=== PATIENT | male | born 1940 | race Caucasian/White ===

== ENCOUNTER 2020-06-30 17:05 | Inpatient (IN) | payer OTHER, MEDICAID ==
[~2020-06-30] VITALS: Ht 182.9 cm; Wt 78.0 kg
[2020-06-30 17:05] VITALS: BP_SYST 135
[2020-06-30] MEDS ORDERED: levETIRAcetam 1,000 MG in NS 90 ML IV ONE (17:15)
[2020-06-30 17:55] LABS: BASOPHILS % (AUTO) 0.9 % (0.0-2.0); EOSINOPHILS # (AUTO) 0.1 K/uL (0.0-0.4); EOSINOPHILS % (AUTO) 1.1 % (0.0-4.0); HEMATOCRIT 49.5 % (36-54); HEMOGLOBIN 16.6 g/dL (14.0-18.0); LYMPHOCYTES # (AUTO) 0.9 K/uL (1.0-5.5); LYMPHOCYTES % (AUTO) 16.3 % (20.5-51.5); MEAN CORPUSCULAR HEMOGLOBIN 31 pg (27-31); MEAN CORPUSCULAR HGB CONC 34 % (32-36); MEAN CORPUSCULAR VOLUME 93 fL (79.0-98.0); MONOCYTES # (AUTO) 0.4 K/uL (0.0-1.0); MONOCYTES % (AUTO) 7.5 % (1.7-9.3); NEUTROPHILS # (AUTO) 3.9 K/uL (1.8-7.7); NEUTROPHILS % (AUTO) 74.2 % (40.0-70.0); PLATELET COUNT (AUTO) 247 K/uL (130-430); RED BLOOD CELL COUNT(AUTO) 5.32 MIL/uL (4.2-6.2); RED CELL DISTRIBUTION WIDTH 14.3 % (9.0-15.0); WHITE BLOOD COUNT (AUTO) 5.3 K/uL (4.8-10.8)
[2020-06-30] MEDS ORDERED: NACL 0.9% 1,000 ML IV ONE (18:00)
[2020-06-30 18:06] LABS: INR 0.9 (0.80-1.20); PROTHROMBIN TIME 9.7 SECS (9.5-12.5)
[2020-06-30 18:10] LABS: CHLORIDE 110 mmol/L (98-107); POTASSIUM 4.3 mmol/L (3.5-5.1); SODIUM SERUM 147 mmol/L (136-145)
[2020-06-30 18:11] LABS: ANION GAP 12 (5-15); CALCIUM 8.8 mg/dL (8.4-11.0); CREATININE 1.44 mg/dL (0.55-1.30); GLUCOSE 131 mg/dL (70-99); UREA NITROGEN, BLOOD 21 mg/dL (8-21)
[2020-06-30 18:14] LABS: ALANINE AMINOTRANSFERASE 17 U/L (12-78); ALBUMIN 3.4 g/dL (3.4-4.8); ASPARTATE AMINOTRANSFERASE 28 U/L (10-37); TOTAL BILIRUBIN 0.4 mg/dL (0.0-1.0)
[2020-06-30 18:25] LABS: VALPROIC ACID 37 ug/mL (50-100)
[2020-06-30 18:28] LABS: BILIRUBIN,URINE NEGATIVE (NEGATIVE); BLOOD, URINE NEGATIVE (NEGATIVE); CLARITY/URINE CLEAR (CLEAR); COLOR,URINE YELLOW (YELLOW); GLUCOSE,URINE NEGATIVE (NEGATIVE); KETONES,URINE TRACE (NEGATIVE); LEUKOCYTE ESTERASE ,URINE NEGATIVE (NEGATIVE); NITRITE, URINE NEGATIVE (NEGATIVE); PH,URINE 5.5 (5.0-8.0); PROTEIN URINE NEGATIVE (NEGATIVE); UROBILINOGEN,URINE 0.2 (0.2-1.0)
[2020-06-30] MEDS ORDERED: ONDANSETRON HCL 4 MG/2 ML VIAL IVP PRN (20:45)
[2020-06-30] MEDS ORDERED: LORazepam 2 MG/ML VIAL IVP PRN (20:45)
[2020-06-30 21:20] VITALS: BP_SYST 127
[2020-06-30] MEDS ORDERED: LORazepam 2 MG/ML VIAL ONE (21:27)
[2020-06-30] MEDS: D5/0.45 NS 1,000 ML IV SCH (21:52)
[2020-07-01] VITALS: BP_SYST 119
[2020-07-01 00:58] VITALS: BP_SYST 127
[2020-07-01] MEDS ORDERED: levETIRAcetam 500 MG IV PREMIX 100 ML IV SCH (09:00)
[2020-07-01] MEDS: levETIRAcetam 500 MG IV PREMIX 100 ML IV SCH ×2 (09:02→20:33)
[2020-07-01 10:27] VITALS: BP_SYST 130
[2020-07-01] MEDS: D5/0.45 NS 1,000 ML IV SCH ×2 (11:03→16:08)
[2020-07-01 11:29] VITALS: BP_SYST 133
[2020-07-01 15:27] VITALS: BP_SYST 132
[2020-07-01 20:00] VITALS: BP_SYST 129
[2020-07-02 01:15] VITALS: BP_SYST 136
[2020-07-02] MEDS: D5/0.45 NS 1,000 ML IV SCH ×2 (04:50→21:04)
[2020-07-02 08:20] VITALS: BP_SYST 157
[2020-07-02] MEDS: levETIRAcetam 500 MG IV PREMIX 100 ML IV SCH ×2 (09:12→21:03)
[2020-07-02 12:19] VITALS: BP_SYST 158
[2020-07-02 15:22] VITALS: BP_SYST 145
[2020-07-02 20:00] VITALS: BP_SYST 153
[2020-07-03 00:45] VITALS: BP_SYST 154
[2020-07-03 08:10] VITALS: BP_SYST 149
[2020-07-03] MEDS: levETIRAcetam 500 MG IV PREMIX 100 ML IV SCH ×2 (08:34→21:42)
[2020-07-03 11:30] VITALS: BP_SYST 148
[2020-07-03 15:17] VITALS: BP_SYST 139
[2020-07-03 20:00] VITALS: BP_SYST 147
[2020-07-03] MEDS: D5/0.45 NS 1,000 ML IV SCH (21:48)
[2020-07-04 00:33] VITALS: BP_SYST 136
[2020-07-04 06:06] LABS: BASOPHILS % (AUTO) 0.4 % (0.0-2.0); EOSINOPHILS # (AUTO) 0.1 K/uL (0.0-0.4); EOSINOPHILS % (AUTO) 2.7 % (0.0-4.0); HEMOGLOBIN 15.5 g/dL (14.0-18.0); LYMPHOCYTES # (AUTO) 1.4 K/uL (1.0-5.5); LYMPHOCYTES % (AUTO) 27.2 % (20.5-51.5); MEAN CORPUSCULAR HEMOGLOBIN 31 pg (27-31); MEAN CORPUSCULAR HGB CONC 34 % (32-36); MEAN CORPUSCULAR VOLUME 92 fL (79.0-98.0); MONOCYTES # (AUTO) 0.8 K/uL (0.0-1.0); MONOCYTES % (AUTO) 15.8 % (1.7-9.3); NEUTROPHILS # (AUTO) 2.8 K/uL (1.8-7.7); NEUTROPHILS % (AUTO) 53.9 % (40.0-70.0); PLATELET COUNT (AUTO) 243 K/uL (130-430); RED BLOOD CELL COUNT(AUTO) 5.02 MIL/uL (4.2-6.2); RED CELL DISTRIBUTION WIDTH 13.8 % (9.0-15.0); WHITE BLOOD COUNT (AUTO) 5.1 K/uL (4.8-10.8)
[2020-07-04 06:27] LABS: ANION GAP 8 (5-15); CALCIUM 8.5 mg/dL (8.4-11.0); CHLORIDE 105 mmol/L (98-107); CREATININE 0.96 mg/dL (0.55-1.30); GLUCOSE 96 mg/dL (70-99); SODIUM SERUM 140 mmol/L (136-145); UREA NITROGEN, BLOOD 8 mg/dL (8-21)
[2020-07-04 07:50] VITALS: BP_SYST 141
[2020-07-04] MEDS: levETIRAcetam 500 MG IV PREMIX 100 ML IV SCH (08:34)
[2020-07-04] MEDS ORDERED: LEVE250T6 PO (11:54)
[2020-07-04 12:20] VITALS: BP_SYST 130
[2020-07-04 14:27] VITALS: BP_SYST 130
== END 2020-07-04 16:00 | DRG 100 ==
LOC: SED 17:05 → STU 20:37
PROVIDERS: ADMIT Family Medicine; ATTEND Family Medicine
PROC: 4A10X4Z Monitoring of Central Nervous Electrical Activity, External Approach (ICD-10-PCS; principal; 2020-07-01)
DX: G40.909 Epilepsy, unspecified, not intractable, without status epilepticus (principal); R40.2122 Coma scale, eyes open, to pain, at arrival to emergency department; R40.2212 Coma scale, best verbal response, none, at arrival to emergency department; R40.2342 Coma scale, best motor response, flexion withdrawal, at arrival to emergency department; N17.9 Acute kidney failure, unspecified; R13.10 Dysphagia, unspecified; G20 Parkinson's disease; M19.90 Unspecified osteoarthritis, unspecified site; F02.80 Dementia in other diseases classified elsewhere, unspecified severity, without behavioral disturbance, psychotic disturbance, mood disturbance, and anxiety; I10 Essential (primary) hypertension; Z20.822 Contact with and (suspected) exposure to COVID-19
CPT/HCPCS: 36415; 36600; 70450-TC; 71045; 76376; 80048; 80053; 80164; 81003; 82803-TC; 83605; 85025; 85610-TC; 87040-TC; 87081; 92610-GN; 93005; 95816; 96361; 96365; 99285; G0378; J1953; J2060

== ENCOUNTER 2022-04-23 03:51 | Inpatient (IN) | payer OTHER, MEDICAID ==
[~2022-04-23] VITALS: Ht 175.3 cm; Wt 64.9 kg
[2022-04-23] VITALS (8 sets, daily range): BP systolic 108–140
[~2022-04-23 03:51] MED LIST: LEVE250T6 PO
--- NOTE | 2022-04-23 03:58 | NUR ---
Placed in room 7 . Placed on threat monitoring analyst, blood pressure machine and pulse oximeter. To gown for exam. Side rails up. Report given to Karolyn LYNN.
[2022-04-23] MEDS ORDERED: cefTRIAXone 1 GM IVPB PREMIX 50 ML IV ONE (04:00)
[2022-04-23] MEDS ORDERED: LORazepam 2 MG/ML VIAL IVP ONE (04:00)
--- NOTE | 2022-04-23 04:00 | NUR ---
PT MARTAA FROM [facility] FOR SEIZURES, EMS REPOTS PT HAD SEVERAL SEIZURES AT FACILITY AND 1 IN [address]TE. PT ARRIVED A&O X0, NOT FOLLOWING COMMANDS, ON HIGH FLOW WITH O2 SAT AT 96%. BS 166 ON ARRIVAL. REQUESTED FOR MSE.
[2022-04-23] MEDS ORDERED: NACL 0.9% 1,000 ML IV ONE (04:15)
--- NOTE | 2022-04-23 04:19 | NUR ---
COVID AND MRSA SWABS COLLECTED AND SENT TO LAB.
[2022-04-23 04:36] LABS: BASOPHILS # (AUTO) 0.1 K/uL (0.0-0.2); BASOPHILS % (AUTO) 0.5 % (0.0-2.0); EOSINOPHILS # (AUTO) 0.1 K/uL (0.0-0.4); EOSINOPHILS % (AUTO) 0.9 % (0.0-4.0); HEMATOCRIT 44.2 % (36-54); HEMOGLOBIN 14.3 g/dL (14.0-18.0); LYMPHOCYTES # (AUTO) 2.5 K/uL (1.0-5.5); LYMPHOCYTES % (AUTO) 17.5 % (20.5-51.5); MEAN CORPUSCULAR HEMOGLOBIN 30 pg (27-31); MEAN CORPUSCULAR HGB CONC 32 % (32-36); MEAN CORPUSCULAR VOLUME 93 fL (79.0-98.0); MONOCYTES # (AUTO) 1.2 K/uL (0.0-1.0); MONOCYTES % (AUTO) 8.1 % (1.7-9.3); NEUTROPHILS # (AUTO) 10.5 K/uL (1.8-7.7); PLATELET COUNT (AUTO) 355 K/uL (130-430); RED BLOOD CELL COUNT(AUTO) 4.75 MIL/uL (4.2-6.2); RED CELL DISTRIBUTION WIDTH 16.2 % (9.0-15.0); WHITE BLOOD COUNT (AUTO) 14.3 K/uL (4.8-10.8)
--- NOTE | 2022-04-23 04:44 | NUR ---
PT TO CT VIA GURBRITT ACCOMPANIED BY TECH AND EMT.
--- NOTE | 2022-04-23 04:55 | NUR ---
PT BACK FROM CT VIA GURNEY ACCOMPANIED BY TECH AND EMT.
[2022-04-23 05:00] LABS: ANION GAP 16 (5-15); CALCIUM 9.5 mg/dL (8.4-11.0); CHLORIDE 109 mmol/L (98-107); CREATININE 1.67 mg/dL (0.55-1.30); GLUCOSE 183 mg/dL (70-99); UREA NITROGEN, BLOOD 26 mg/dL (8-21)
[2022-04-23 05:04] LABS: ALANINE AMINOTRANSFERASE 16 U/L (12-78); ALBUMIN 3.7 g/dL (3.4-4.8); ASPARTATE AMINOTRANSFERASE 15 U/L (10-37); PHENYTOIN (DILANTIN) 0.8 ug/mL (10.0-20.0); TOTAL BILIRUBIN 0.2 mg/dL (0.0-1.0)
--- NOTE | 2022-04-23 06:12 | NUR ---
PT PUT ON 4L NC, O2 SAT 95%, RR 22. MD MADE AWARE. SAFETY PRECAUTIONS IN PLACE AND CONNECTED TO MONITOR.
--- NOTE | 2022-04-23 06:15 | NUR ---
MD MADE AWARE OF LACTIC ACID OF 8.3. REQUESTED NS BOLUS, MD DOES NOT WANT TO MOVE FORWARD WITH MORE FLUIDS.
[2022-04-23 06:30] LABS: BILIRUBIN,URINE NEGATIVE (NEGATIVE); BLOOD, URINE 3+ (NEGATIVE); CLARITY/URINE CLOUDY (CLEAR); COLOR,URINE YELLOW (YELLOW); GLUCOSE,URINE NEGATIVE (NEGATIVE); KETONES,URINE NEGATIVE (NEGATIVE); LEUKOCYTE ESTERASE ,URINE 1+ (NEGATIVE); NITRITE, URINE POSITIVE (NEGATIVE); PROTEIN URINE 2+ (NEGATIVE); UROBILINOGEN,URINE 0.2 (0.2-1.0)
[2022-04-23 06:41] LABS: BACTERIA,URINE MANY /HPF (None Seen); WBC,URINE >100 /HPF (0-3)
[2022-04-23] MEDS ORDERED: FAMO20TA8 PO (07:04)
[2022-04-23] MEDS ORDERED: QUET50TA15 PO (07:04)
[2022-04-23] MEDS ORDERED: VITD2000 PO (07:04)
[2022-04-23] MEDS ORDERED: LEVE1000 PO (07:04)
[2022-04-23] MEDS ORDERED: ACETYLCYSTEINE 20% INH (07:04)
[2022-04-23] MEDS ORDERED: LIP20 PO (07:04)
[2022-04-23] MEDS ORDERED: XALEYE OP (07:04)
[2022-04-23] MEDS ORDERED: AMAN100C19 PO (07:04)
[2022-04-23] MEDS ORDERED: MULT-1117 PO (07:04)
[2022-04-23] MEDS ORDERED: CARB-317 PO (07:04)
[2022-04-23] MEDS ORDERED: LEVO25TA2 PO (07:04)
[2022-04-23] MEDS ORDERED: PHEN100C4 PO (07:04)
--- NOTE | 2022-04-23 07:15 | NUR ---
REPORT GIVEN TO CONCEPCION MILLER TO ASSUME CARE.
[2022-04-23] MEDS ORDERED: LORazepam 2 MG/ML VIAL IVP PRN (07:30)
--- NOTE | 2022-04-23 08:00 | NUR ---
Recieved report from LEAH Dudley. PT is nonverbal alert to voice and tactile stimulus. Skin is warm, intact , dry flaky and itchy (PT scratching extremities). On 4L oxygen via nasal canula saturation 97%. Breathing is even and unlabored, downey in place and draining well 50ml of urine return in bag, dry blood noted at meatus. IV on left hand; IV flushed and no infiltration noted. side rails up bed at lowest position. VSS
--- NOTE | 2022-04-23 08:08 | NUR ---
Note debbieone in EDM - 04/23/22 at 0810 by [id number] Admit bed requested Patient will be admitted to care of ]. Admitted to [] unit. Diagnosis [] Inpatient (Yes or No) [] Observation (Yes or No) [] Orientation concerns or request close to nursing station (Yes or No) [] Covid Status [] On vent or bipap [] Isolation requirements [] Needs a sitter [] From Home (Yes or if No enter name of facility) [] Requires Dialysis (Yes or No) [] Med Rec Completed (Yes of No) []
--- NOTE | 2022-04-23 08:34 | NUR ---
Admit bed requested Patient will be admitted to care of . Admitted to TELE unit. Diagnosis UROSEPSIS,UNCONTROLLED SEIZURES Inpatient (Yes or No) Y Observation (Yes or No) N Orientation concerns or request close to nursing station (Yes or No) Y Covid Status NEG On vent or bipap N Isolation requirements N Needs a sitter N From Home (Yes or if No enter name of facility) [facility] Requires Dialysis (Yes or No) N Med Rec Completed (Yes of No) Y
--- NOTE | 2022-04-23 09:56 | NUR ---
CONSULTATION PAGED REASON FOR CONSULTATION:UNCONTROLLED SEIZURES WAS CONSULT CALLED?Y PERSON WHO WAS NOTIFIED:TEXT MESSAGED BRANDON ARCHER CONSULTING PHYSICIAN:BRANDON ARCHER MARINE ELECTRONICS TECHNICIAN SPECIALTY:NEURO MARINE ELECTRONICS TECHNICIAN PHONE NUMBER:[phone] REQUESTING PHYSICIAN:KAMARI BEYER
[2022-04-23] MEDS: D5/0.45 NS 1,000 ML IV SCH ×2 (10:00→20:00)
--- NOTE | 2022-04-23 10:40 | NUR ---
Patient will be admitted to care of DR LUKE. Admitted to unit. Will go to room . Belongings list completed. Complete and up to date summary report printed. SBAR report to be given at bedside with opportunity for questions.
[2022-04-23] MEDS: CEFEPIME 1 GM in D5W 50 ML IV SCH (12:09)
--- NOTE | 2022-04-23 20:50 | NUR ---
ENDORSED CARE REPORT GIVEN TO LEAH LAY
[2022-04-23] MEDS: levETIRAcetam 500 MG TABLET PO SCH ×2 (21:00→22:26)
[2022-04-23] MEDS: PHENYTOIN 100 MG CAPSULE PO SCH ×2 (21:00→22:28)
[2022-04-23] MEDS: CARBIDOPA/LEVODOPA 25/100 MG TABLET PO SCH ×2 (21:00→22:28)
[2022-04-23] MEDS: ATORVASTATIN 20 MG TABLET PO SCH ×2 (21:00→22:28)
[2022-04-23] MEDS ORDERED: levETIRAcetam 500 MG TABLET PO SCH (21:00)
[2022-04-24 01:05] VITALS: BP_SYST 129
--- NOTE | 2022-04-24 03:19 | NUR ---
PAGE PAGED DOCTOR NOE FOR ORDERS
--- NOTE | 2022-04-24 03:55 | NUR ---
Patient Awake,alert,and oriented x1 to 2. Speech is garbled . Side rails padded for seizure precautions. Colon intact with concentrated lexus urine noted. O2 on at 2 liters per nasal cannula. Patient refused medications and IV being replaced. Dr oliver x2, waiting for a call back. Will continue to monitor.
[2022-04-24 04:08] VITALS: BP_SYST 141
[2022-04-24] MEDS: LEVOTHYROXINE SODIUM 0.025 MG TABLET PO SCH (06:12)
[2022-04-24 07:25] LABS: BASOPHILS % (AUTO) 0.7 % (0.0-2.0); EOSINOPHILS # (AUTO) 0.2 K/uL (0.0-0.4); EOSINOPHILS % (AUTO) 2.3 % (0.0-4.0); HEMATOCRIT 39.6 % (36-54); LYMPHOCYTES # (AUTO) 2.4 K/uL (1.0-5.5); LYMPHOCYTES % (AUTO) 35.5 % (20.5-51.5); MEAN CORPUSCULAR HEMOGLOBIN 31 pg (27-31); MEAN CORPUSCULAR HGB CONC 33 % (32-36); MEAN CORPUSCULAR VOLUME 93 fL (79.0-98.0); MONOCYTES % (AUTO) 14.2 % (1.7-9.3); NEUTROPHILS # (AUTO) 3.2 K/uL (1.8-7.7); NEUTROPHILS % (AUTO) 47.3 % (40.0-70.0); PLATELET COUNT (AUTO) 254 K/uL (130-430); RED BLOOD CELL COUNT(AUTO) 4.26 MIL/uL (4.2-6.2); RED CELL DISTRIBUTION WIDTH 16.1 % (9.0-15.0)
[2022-04-24 07:30] LABS: ALANINE AMINOTRANSFERASE 17 U/L (12-78); ALBUMIN 3.2 g/dL (3.4-4.8); ANION GAP 13 (5-15); ASPARTATE AMINOTRANSFERASE 17 U/L (10-37); CALCIUM 9.3 mg/dL (8.4-11.0); CHLORIDE 111 mmol/L (98-107); CREATININE 1.27 mg/dL (0.55-1.30); GLUCOSE 113 mg/dL (70-99); TOTAL BILIRUBIN 0.5 mg/dL (0.0-1.0); UREA NITROGEN, BLOOD 21 mg/dL (8-21)
[2022-04-24 07:40] LABS: WHITE BLOOD COUNT (AUTO) 6.7 K/uL (4.8-10.8)
[2022-04-24 08:00] VITALS: BP_SYST 139
--- NOTE | 2022-04-24 08:22 | NUR ---
OPENING NOTES: PT IN BED A/O X 2 . NO S/S OF DISTRESS OR PAIN REPORTED. BREATHING IS EVEN AND UNLABORED ON 3L NC. ALL NEEDS MET AT THIS TIME, SAFETY CHECKS MADE AND CALL LIGHT WITHIN REACH.
--- NOTE | 2022-04-24 08:25 | NUR ---
PAGED PAGED KAMARI BEYER AT [phone] SPOKE WITH HANS.
[2022-04-24] MEDS: D5/0.45 NS 1,000 ML IV SCH ×2 (08:30→23:29)
--- NOTE | 2022-04-24 08:32 | NUR ---
ROUNDS: PT IS REFUSING TO TAKE ALL MORNING MEDS. WILL NOTIFY DR. LUKE.
[2022-04-24] MEDS: levETIRAcetam 500 MG TABLET PO SCH ×2 (08:33→21:00)
[2022-04-24] MEDS: MULTIVITAMINS TAB 1 TABLET PO SCH (08:33)
[2022-04-24] MEDS: PHENYTOIN 100 MG CAPSULE PO SCH ×3 (08:33→21:00)
[2022-04-24] MEDS: CHOLECALCIFEROL (VITAMIN D3) 2,000 UNIT TABLET PO SCH (08:34)
[2022-04-24] MEDS: FAMOTIDINE 20 MG TABLET PO SCH (08:34)
[2022-04-24] MEDS: CARBIDOPA/LEVODOPA 25/100 MG TABLET PO SCH ×3 (08:34→21:00)
--- NOTE | 2022-04-24 09:13 | NUR ---
MD: DR LUKE RETURNED CALL. ORDERS FOR MIDLINE AND IM ATIVAN
--- NOTE | 2022-04-24 09:14 | NUR ---
HIGH ALERT NOTE: Called Dr. LUKE back identified within the medical roster to verify physician authenticity.
[2022-04-24] MEDS ORDERED: LORazepam 2 MG/ML VIAL IM ONE ×4 (09:15→23:00)
--- NOTE | 2022-04-24 10:10 | NUR ---
Received call from LEAH Parks regarding a procedure needed and information she was informed of by the [facility]. per , they are the conservator of the patient and they give consent for the patient's necessary procedure. I advised the nurse that I would call the facility to get appropriate paperwork that can be placed in the chart. Telephone call made to SHAMIKA Humphries at . per SHAMIKA, they are not the conservator of the patient, but the patient is managed by the IDT of the facility. She states for any procedures that are needed, they gather, meet, and determine the need for the procedure. I advised her of the patient's need for a mid line placement. The DON met with the IDT and indicated that they are approving for the placement of the mid line. I asked her to fax the IDT note with the necessary signatures, in which she stated she would. I advised the nurse of the information and indicated that once the fax is received, then i will bring it to her to place in the admission section of the chart. per nurse, upon receiving the IDT note, she will have me sign as the witness to the verbal consent for the procedure. Jerry Swann: [phone] SHAMIKA Humphries at [facility]: [phone]
--- NOTE | 2022-04-24 10:19 | NUR ---
SOFTWARE IMPLEMENTATION SPECIALIST: JEANNETTE WATTS CALLED PATIENT'S FACILITY [facility] TO CONFIRM CONSERVATORSHIP OVER PT CARE. SUZANNE OF [facility] APPROVED PLACEMENT OF THE MIDLINE WITH HER IDT TEAM. SHE WILL BE FAXING JEANNETTE WATTS WITH IDT FORM. ONCE FORM IS FAXED CONSENT FOR MIDLINE PLACEMENT WILL BE IN PT CHART.
[2022-04-24 11:25] VITALS: BP_SYST 123
[2022-04-24] MEDS: CEFEPIME 1 GM in D5W 50 ML IV SCH ×4 (12:00→23:28)
--- NOTE | 2022-04-24 14:13 | NUR ---
MD: DR LUKE CALLED BACK. ONCE PT HAS MIDLINE PLACEMENT THE PT WILL HAVE AN IV DVT PROPHYLACTIC.
--- NOTE | 2022-04-24 14:49 | NUR ---
NOTES: SPOKE WITH YEVGENIY THE PICC/MIDLINE NURSE. IT WANTED TO CONFIRM PT CONSENT. INFORMED HIM WE ARE WAITING FOR THE IDT TEAM AND DON AT [facility] TO FAX OVER CONSERVATORSHIP. THE IDT TEAM MAKES CARE DECISIONS FOR THIS PT. HE ASKED ME TO CALL HIM ONCE WE GET THE FAX.
--- NOTE | 2022-04-24 14:54 | NUR ---
MD: DR LUKE WAS BEDSIDE WITH THE PT
--- NOTE | 2022-04-24 15:34 | NUR ---
IDT note received from Jerry Swann. IDT note passed to RN Kasey to be placed in the patient's chart and begin procedure.
--- NOTE | 2022-04-24 15:55 | NUR ---
Received notification from LEAH Parks who advised that the IDT form sent needs to be resubmitted due to the IDT from Jerry Swann indicated a PICC line and not a MID line. I called Kristel back to inform her of the change needed, and she advised that her IDT members are not all present and it is now the end of the day. She asked if a form could be faxed over for them to sign and I advised her that I needed to call the nurse to ask. I called and spoke with the nurse and informed her of the conversation. Nurse states she will need to discuss with SHAMIKA.
[2022-04-24 16:40] VITALS: BP_SYST 119
--- NOTE | 2022-04-24 16:58 | NUR ---
NOTES: CONTACTED YEVGENIY PICC LINE NURSE AND INFORMED HIM WE HAVE CONSENT. CONSENT IN PT CHART
--- NOTE | 2022-04-24 17:10 | NUR ---
: DR LUKE APPROVED ORDER FOR IM ATIVAN ONE TIME.
--- NOTE | 2022-04-24 17:12 | NUR ---
HIGH ALERT NOTE: Called Dr. LUKE back identified within the medical roster to verify physician authenticity.
[2022-04-24 17:15] LABS: PROTHROMBIN TIME 10.6 SECS (9.5-12.5)
--- NOTE | 2022-04-24 19:00 | NUR ---
CLOSING NOTES: PT IN BED WITH EYES CLOSED. NO S/S OF DISTRESS OR PAIN REPORTED. BREATHING IS EVEN AND UNLABORED ON 3L NC. CACERES CATHETER IS DRAINING TO GRAVITY. ALL NEED MET AT THIS TIME, SAFETY CHECKS MADE AND CALL LIGHT WITHIN REACH.
--- NOTE | 2022-04-24 19:25 | NUR ---
OPENING NOTE PT IS SITTING UP IN BED WITH EYES OPEN. PT RESTLESS. NO APPARENT DISTRESS NOTED AT THIS TIME. FALL AND SAFETY PRECAUTIONS IN PLACE. CALL LIGHT WITHIN REACH. SEIZURE PRECAUTIONS IN PLACE.
--- NOTE | 2022-04-24 19:50 | NUR ---
PT CONFUSED/AGITATED PT OBSERVED SITTING AT EDGE OF BED AND PULLING AT CACERES CATH. NURSE ASSISTED PT BACK INTO BED AND REORIENTED PT ON CACERES CATH. PT STILL AGITATED.
[2022-04-24 20:00] VITALS: BP_SYST 123
--- NOTE | 2022-04-24 20:45 | NUR ---
SPOKE WITH DR LUKE RECEIVED ONE TIME ORDER FOR ATIVAN 1 MG IM FOR AGITATION NURSE READ BACK ORDER TO
[2022-04-24] MEDS: HEPARIN SODIUM,PORCINE 5,000 UNITS/ML VIAL SUBCUT SCH (21:00)
[2022-04-24] MEDS: ATORVASTATIN 20 MG TABLET PO SCH (21:00)
--- NOTE | 2022-04-24 22:00 | NUR ---
PICC LINE PLACED DOUBLE LUMEN RIGHT UPPER ARM PICC PLACED. PLACEMENT CONFIRMED BY X RAY.
--- NOTE | 2022-04-25 | NUR ---
ROUNDS PT LYING IN BED WITH EYES CLOSED. NO APPARENT DISTRESS NOTED AT THIS TIME. PT STILL AGITATED. BED IN LOWEST POSITION WITH FALL AND SAFETY PRECAUTIONS IN PLACE.
[2022-04-25 00:53] VITALS: BP_SYST 123
--- NOTE | 2022-04-25 02:13 | NUR ---
PT PULLED OUT PICC LINE NURSE WENT IN TO FIX PT TELE MONITOR AND DISCOVERED PT PULLED OUT HIS PICC LINE. PRESSURE HELD FOR 3 MINUTES. NO BLEEDING NOTED. IV FLUIDS STOPPED
--- NOTE | 2022-04-25 03:50 | NUR ---
PT OUT OF BED AND PULLED OUT CACERES CATH PT WAS OBSERVED TO BE OUT OF BED ATTEMPTING TO GET TO THE BATHROOM. PT ASSISTED BACK TO BED. NURSE NOTED THAT PT PULLED OUT THEIR CACERES CATH. MINIMAL BLOOD OBSERVED ON TIP OF PENIS. NO COMPLAINTS OF PAIN AT THIS TIME. PT BACK IN BED WITH FALL AND SAFETY PRECAUTIONS IN PLACE. SEIZURE PRECAUTIONS IN PLACE.
--- NOTE | 2022-04-25 04:05 | NUR ---
PT PULLED OFF PRODUCT STEWARD NURSE ATTEMPTED TO PLACE PRODUCT STEWARD BACK ON PT. PT BECAME AGITATED AND PUSHED NURSES AWAY WHILE YELLING. NURSE WAS ABLE TO EXPLAIN TO THE PATIENT THE IMPORTANCE OF THE MONITOR. PT CONSENTED TO NURSE TO PLACE MONITOR ANALI ON.
[2022-04-25] MEDS: LEVOTHYROXINE SODIUM 0.025 MG TABLET PO SCH ×2 (05:46→23:25)
--- NOTE | 2022-04-25 06:40 | NUR ---
BLOOD NOTED SMALL POOP OF BLOOD NOTED AROUND PENIS. PT AGITATED AND COMBATIVE WHEN NURSE ATTEMPTED TO CLEAN PT. OOZING BLOOD NOTED FROM TIP OF PENIS ONCE CLEANED.
--- NOTE | 2022-04-25 06:59 | NUR ---
CLOSING NOTE PT IS LYING UP IN BED WITH EYES CLOSED AND BLANKET OVER HEAD. NO APPARENT DISTRESS NOTED AT THIS TIME. FALL AND SAFETY PRECAUTIONS IN PLACE. CALL LIGHT WITHIN REACH. SEIZURE PRECAUTIONS IN PLACE.
--- NOTE | 2022-04-25 07:53 | NUR ---
OPENING NOTES: PT IN BED WITH EYES CLOSED. NO S/S OF DISTRESS OR PAIN REPORTED. PT REPEATEDLY TAKES OFF NC. BREATHING IS EVEN AND UNLABORED ON RA AT 98%. ALL NEEDS MET AT THIS TIME, SAFETY CHECKS MADE AND CALL LIGHT WITHIN REACH.
[2022-04-25 08:00] VITALS: BP_SYST 128
--- NOTE | 2022-04-25 08:52 | NUR ---
ROUNDS: PT JUMPED OUT OF BED AND URINATED ON THE FLOOR. HE PULLED HIS CACERES OUT LAST NIGHT. CLEANED PT UP AND REPLACED ALL LINENS. CALLED DR LUKE FOR NEW ORDERS.
[2022-04-25] MEDS: CARBIDOPA/LEVODOPA 25/100 MG TABLET PO SCH ×3 (09:00→21:00)
[2022-04-25] MEDS: CHOLECALCIFEROL (VITAMIN D3) 2,000 UNIT TABLET PO SCH (09:00)
[2022-04-25] MEDS: levETIRAcetam 500 MG TABLET PO SCH ×2 (09:00→21:00)
[2022-04-25] MEDS: HEPARIN SODIUM,PORCINE 5,000 UNITS/ML VIAL SUBCUT SCH ×2 (09:00→21:00)
[2022-04-25] MEDS: FAMOTIDINE 20 MG TABLET PO SCH (09:00)
[2022-04-25] MEDS: MULTIVITAMINS TAB 1 TABLET PO SCH (09:00)
[2022-04-25] MEDS: PHENYTOIN 100 MG CAPSULE PO SCH ×3 (09:00→21:00)
[2022-04-25] MEDS: D5/0.45 NS 1,000 ML IV SCH ×2 (09:30→22:00)
--- NOTE | 2022-04-25 09:32 | NUR ---
: CALLING DR LUKE
--- NOTE | 2022-04-25 10:12 | NUR ---
MD: UPDATED DR LUKE ON PT STATUS. INFORMED HIM THAT PT GOT OUT OF BED AND URINATED ON THE FLOOR. ORDER FOR RESTRAINTS, PHYSIC CONSULT AND IN REGARDS TO THE CACERES BEING PULLED OUT BY THE PT DR LUKE SAID TO OBSERVE HIM.
--- NOTE | 2022-04-25 11:38 | NUR ---
MD: DR LUKE AT BEDSIDE. ORDER FOR NEW PICC LINE INSERTION UPON CONSENT FOR PT FROM [facility]. WILL CALL [facility] AND UPDATE ABOUT NEW CONSENT.
--- NOTE | 2022-04-25 11:50 | NUR ---
CONSENT: CALLED [facility] FOR NEW CONSENT TO INSERT PICC LINE. SPOKE WITH CHARGE NURSE JORGE L BRYAN SHE IS CONTACTING THE OXYGEN TANK FILLER AND WILL CALL BACK.
[2022-04-25 12:00] VITALS: BP_SYST 125
[2022-04-25] MEDS: CEFEPIME 1 GM in D5W 50 ML IV SCH ×2 (12:00→23:25)
--- NOTE | 2022-04-25 15:12 | NUR ---
Dietitian Recommendations * Continue Pureed diet (Ensure TID comes standard w/ current diet -- ONS yields 1050 kcal/day, 60 gm protein/day) * Encourage good PO intakes LP, MS, RD Please refer to Nutrition Assessment for details. Addendum: 04/25/22 at [address] Amended: Links added. Addendum: 04/25/22 at [address] CORRECTION: Dietitian Recommendations * Continue Pureed, CCHO standard carb-60 gm diet (Glucerna TID comes standard w/ current diet -- ONS yields 840 kcal/day, 35 gm protein/day) * Encourage good PO intakes LP, MS, RD Please refer to Nutrition Assessment for details.
--- NOTE | 2022-04-25 16:44 | NUR ---
NOTES: RECEIVED CONSENT FROM [facility] FOR PT TO HAVE PICC LINE INSERTION. PT PULLED OUT PICC LINE FROM 04/24/22. DR LUKE APPROVED ORDER FOR ANOTHER PICC LINE.
[2022-04-25 16:47] VITALS: BP_SYST 127
--- NOTE | 2022-04-25 18:12 | NUR ---
CLOSING NOTES: PT IS IN BED WITH EYES CLOSED. RESTRAINTS ARE SECURED AND Q2 HOUR ROUNDS MADE ON PT. NO S/S OF DISTRESS OR PAIN REPORTED. BREATHING IS EVEN AND UNLABORED 98% RA. PT REMOVED HIS 3L NC, IT WAS REPLACED. ALL NEEDS MET AT THIS TIME, SAFETY CHECKS MADE AND CALL LIGHT WITHIN REACH. WILL ENDORSE TO NIGHT NURSE.
[2022-04-25 19:30] VITALS: BP_SYST 136
--- NOTE | 2022-04-25 19:30 | NUR ---
Opening Note PT lying in his bed on his right side. No S/S of acute distress or pain. Breathing even and nonlabored. Restrains are secured and Monitored Q2 hours made. VSS. Bed alarm on and lowest position. call light within reach.
[2022-04-25] MEDS ORDERED: LORazepam 2 MG/ML VIAL ONE (20:15)
[2022-04-25] MEDS: ATORVASTATIN 20 MG TABLET PO SCH (21:00)
[2022-04-25] MEDS: SULFAMETHOXAZOLE/TRIMETHOPR DS 1 TABLET PO SCH (21:00)
--- NOTE | 2022-04-25 23:00 | NUR ---
Rounding Note PT lying his bed and eyes are closed. No S/S of acute distress or pain. bed alarm on. call light in reach. Retrains on, circulation WNL. Continue to monitor.
[2022-04-25 23:36] VITALS: BP_SYST 136
[2022-04-26 00:49] VITALS: BP_SYST 137
--- NOTE | 2022-04-26 02:15 | NUR ---
Rounding Note PT lying his bed and talking to himself. Reoriented PT. No S/S of acute distress or pain. Bed alarm on. Call light in reach. Retrains on with quick-release ties to bed frame and circulation WNL. Will monitor Q2hr.
[2022-04-26] MEDS: LORazepam 2 MG/ML VIAL IM PRN ×2 (03:31→12:07)
--- NOTE | 2022-04-26 05:15 | NUR ---
Rounding Note PT wetted on sheet with urine. provided perineal care and changed to new gown, bed cover and sheet. Skin intact and dry. No S/S of acute distress or pain. Bed alarm on. Call light in reach. Retrains on with quick-release ties to bed frame and circulation WNL. Will monitor Q2hr.
--- NOTE | 2022-04-26 05:22 | NUR ---
TELE PHYSC CONSULTATION PAGED/CALLED Reason for Consultation: INCREASED CONFUSION Person Who was Notified: REJI Consulting Physician: JORDAN RICHMOND Blow Mold Technician Specialty: Ordering Physician: NOE
--- NOTE | 2022-04-26 07:05 | NUR ---
CLOSING NOTE PT LYING IN BED. AWAKE. NO S/S OF DISTRESS OR PAIN. BREATHING EVEN AND NONLABORED. BED ALARM AND RESTRAINTS ON. SKIN INTACT.
[2022-04-26 08:00] VITALS: BP_SYST 142
--- NOTE | 2022-04-26 08:15 | NUR ---
OPENING NOTES: PT IN BED WITH EYES CLOSED. REPOSITIONED PT TO [facility] SO HE COULD EAT BREAKFAST. LET HIM OFF RESTRAINTS WITH RETAIL MERCHANDISING MANAGER AT BEDSIDE SO PT COULD FEED HIMSELF. NO INJURY OR LACK OF CIRCULATION NOTED BY RESTRAINTS. RESTRAINTS REAPPLIED AFTER BREAKFAST. NO S/S OF DISTRESS OR PAIN REPORTED. BREATHING IS EVEN AND UNLABORED ON 3L NC. ALL NEEDS MET AT THIS TIME, SAFETY CHECKS MADE AND CALL LIGHT WITHIN REACH.
[2022-04-26] MEDS: MULTIVITAMINS TAB 1 TABLET PO SCH (09:00)
[2022-04-26] MEDS: CHOLECALCIFEROL (VITAMIN D3) 2,000 UNIT TABLET PO SCH (09:00)
[2022-04-26] MEDS: PHENYTOIN 100 MG CAPSULE PO SCH ×3 (09:00→21:00)
[2022-04-26] MEDS: CARBIDOPA/LEVODOPA 25/100 MG TABLET PO SCH ×3 (09:00→21:00)
[2022-04-26] MEDS: levETIRAcetam 500 MG TABLET PO SCH ×2 (09:00→21:00)
[2022-04-26] MEDS: FAMOTIDINE 20 MG TABLET PO SCH (09:00)
[2022-04-26] MEDS: HEPARIN SODIUM,PORCINE 5,000 UNITS/ML VIAL SUBCUT SCH ×2 (09:00→21:00)
[2022-04-26] MEDS: SULFAMETHOXAZOLE/TRIMETHOPR DS 1 TABLET PO SCH ×2 (09:00→21:00)
--- NOTE | 2022-04-26 09:00 | NUR ---
ROUNDS: PT REFUSING MEDICATIONS. PICC LINE LEAH VUONG CALLED AND IS COMING TO INSERT PICC LINE.
[2022-04-26 09:36] LABS: BASOPHILS % (AUTO) 0.9 % (0.0-2.0); EOSINOPHILS # (AUTO) 0.2 K/uL (0.0-0.4); EOSINOPHILS % (AUTO) 4.3 % (0.0-4.0); HEMATOCRIT 39.7 % (36-54); HEMOGLOBIN 13.3 g/dL (14.0-18.0); LYMPHOCYTES # (AUTO) 1.5 K/uL (1.0-5.5); LYMPHOCYTES % (AUTO) 31.6 % (20.5-51.5); MEAN CORPUSCULAR HEMOGLOBIN 30 pg (27-31); MEAN CORPUSCULAR HGB CONC 34 % (32-36); MEAN CORPUSCULAR VOLUME 91 fL (79.0-98.0); MONOCYTES # (AUTO) 0.5 K/uL (0.0-1.0); MONOCYTES % (AUTO) 10.3 % (1.7-9.3); NEUTROPHILS # (AUTO) 2.5 K/uL (1.8-7.7); NEUTROPHILS % (AUTO) 52.9 % (40.0-70.0); PLATELET COUNT (AUTO) 269 K/uL (130-430); RED BLOOD CELL COUNT(AUTO) 4.38 MIL/uL (4.2-6.2); RED CELL DISTRIBUTION WIDTH 15.5 % (9.0-15.0); WHITE BLOOD COUNT (AUTO) 4.8 K/uL (4.8-10.8)
[2022-04-26] MEDS: D5/0.45 NS 1,000 ML IV SCH ×2 (10:30→23:42)
[2022-04-26 10:34] LABS: ALANINE AMINOTRANSFERASE 20 U/L (12-78); ALBUMIN 3.2 g/dL (3.4-4.8); ANION GAP 9 (5-15); ASPARTATE AMINOTRANSFERASE 24 U/L (10-37); CHLORIDE 104 mmol/L (98-107); CREATININE 0.99 mg/dL (0.55-1.30); GLUCOSE 102 mg/dL (70-99); TOTAL BILIRUBIN 0.5 mg/dL (0.0-1.0); UREA NITROGEN, BLOOD 15 mg/dL (8-21)
[2022-04-26 11:54] VITALS: BP_SYST 110
[2022-04-26] MEDS: CEFEPIME 1 GM in D5W 50 ML IV SCH ×2 (12:00→23:04)
[2022-04-26] MEDS ORDERED: POTASSIUM CHLORIDE 20 MEQ in NS 250 ML IV ONE (17:00)
[2022-04-26 17:08] VITALS: BP_SYST 131
--- NOTE | 2022-04-26 18:19 | NUR ---
CLOSING NOTES: PT IN BED EATING DINNER. REMOVED RESTRAINTS SO PT COULD FEED HIMSELF WHILE I OBSERVED THE ENTIRE TIME. WILL REAPPLY RESTRAINTS WHEN HE IS FINISHED. NO S/S OF DISTRESS OR PAIN REPORTED. BREATHING IS EVEN AND UNLABORED ON 2L NC. PICC LINE IS PATENT AND KRIDER IS FLOWING. ALL NEEDS MET AT THIS TIME, SAFETY CHECKS MADE AND CALL LIGHT WITH IN REACH. WILL ENDORSE TO GOLF COURSE KEEPER NURSE.
--- NOTE | 2022-04-26 19:10 | NUR ---
OPENING NOTE PT IS LYING IN BED WITH EYES CLOSED LETHARGIC. NO APPARENT SIGNS OF DISTRESS NOTED AT THIS TIME. BED IN LOWEST POSITION WITH FALL AND SAFETY PRECAUTIONS IN PLACE. BILAT WRIST RESTRAINT IN PLACE, SKIN & CIRCULATION WNL. IV FLUID RUNNING ORDERED.
[2022-04-26 20:00] VITALS: BP_SYST 122
[2022-04-26] MEDS: ATORVASTATIN 20 MG TABLET PO SCH (21:00)
[2022-04-26] MEDS ORDERED: QUEtiapine FUMARATE 25 MG TABLET PO PRN (21:15)
--- NOTE | 2022-04-26 23:20 | NUR ---
ROUNDS PT IS LYING IN BED WITH EYES CLOSED. NO APPARENT SIGNS OF DISTRESS NOTED. BILAT WRIST RESTRAINTS ON, SKIN & CIRCULATION WNL. IV FLUIDS RUNNING ORDERED.
[2022-04-27 00:35] VITALS: BP_SYST 127
--- NOTE | 2022-04-27 04:21 | NUR ---
ROUNDS BED BATH PROVIDED, CLEAN SHEETS. NO APPARENT SIGNS OF DISTRESS NOTED. WHEN NURSE ATTEMPTED TO PLACE PT BACK ONTO RESTRAINTS PT BECAME COMBATIVE AND ATTEMPTED TO HIT THE NURSE. NURSE WAS ABLE TO TALK TO AND CALM PT DOWN. PT LET NURSE PLACE HIM BACK ON RESTRAINTS. SKIN & CIRCULATION WNL. IV FLUIDS RUNNING ORDERED.
[2022-04-27] MEDS: LEVOTHYROXINE SODIUM 0.025 MG TABLET PO SCH (06:30)
--- NOTE | 2022-04-27 07:03 | NUR ---
OPENING NOTE PT IS LYING IN BED WITH EYES CLOSED. NO APPARENT SIGNS OF DISTRESS NOTED AT THIS TIME. BED IN LOWEST POSITION WITH FALL AND SAFETY PRECAUTIONS IN PLACE. BILAT WRIST RESTRAINT IN PLACE, SKIN & CIRCULATION WNL. IV FLUID RUNNING ORDERED. CALL LIGHT WITHIN REACH. Addendum: 04/27/22 at 0704 by Otis Blake LVN CLOSING NOTE
--- NOTE | 2022-04-27 07:35 | NUR ---
MORNING ROUNDS: PATIENT LYING ON THE BED,AWAKE,ALERT AND ORIENTED X2-3.WITH BILATERAL SOFT WRIST RESTRAINT ON. BED LOCKED AT LOWEST POSITION. IV FLUIDS RUNNING AT RIGHT UPPER ARM PICC LINE INTACT. O2 2L/NC,GOOD SATURATION. SAFETY MEASURES RENDERED. NO DISTRESS.
[2022-04-27 08:00] VITALS: BP_SYST 133
[2022-04-27] MEDS: HEPARIN SODIUM,PORCINE 5,000 UNITS/ML VIAL SUBCUT SCH ×2 (08:59→20:47)
[2022-04-27] MEDS: FAMOTIDINE 20 MG TABLET PO SCH (09:00)
[2022-04-27] MEDS: PHENYTOIN 100 MG CAPSULE PO SCH (09:00)
[2022-04-27] MEDS: MULTIVITAMINS TAB 1 TABLET PO SCH (09:00)
[2022-04-27] MEDS: levETIRAcetam 500 MG TABLET PO SCH (09:00)
[2022-04-27] MEDS: SULFAMETHOXAZOLE/TRIMETHOPR DS 1 TABLET PO SCH ×2 (09:00→20:55)
[2022-04-27] MEDS: CARBIDOPA/LEVODOPA 25/100 MG TABLET PO SCH ×3 (09:00→20:45)
[2022-04-27] MEDS: CHOLECALCIFEROL (VITAMIN D3) 2,000 UNIT TABLET PO SCH (09:00)
--- NOTE | 2022-04-27 09:00 | NUR ---
MED PASS: PATIENT HAD A CHANGED OF BEHAVIOR.NON VERBAL,BOTH HANDS CLENCHED WHEN ATTEMPTING TO ADMINISTER HEPARIN SC.PATIENT REFUSED ORAL MEDICATIONS.BILATERAL SOFT WRIST RESTRAINT ON. NO DISTRESS.
[2022-04-27] MEDS: CEFEPIME 1 GM in D5W 50 ML IV SCH ×2 (12:09→23:40)
[2022-04-27] MEDS: D5/0.45 NS 1,000 ML IV SCH (12:14)
[2022-04-27] MEDS ORDERED: PHENYTOIN SODIUM 100 MG/2 ML VIAL (DILANTIN) IV SCH (12:45)
[2022-04-27] MEDS ORDERED: PHENYTOIN SODIUM 100 MG/2 ML VIAL (DILANTIN) IV ONE (13:00)
[2022-04-27 13:17] VITALS: BP_SYST 131
[2022-04-27] MEDS ORDERED: PHENYTOIN SODIUM IV ONE (16:00)
[2022-04-27] MEDS ORDERED: NS IV ONE (16:00)
--- NOTE | 2022-04-27 18:30 | NUR ---
EVENING ROUNDS: PATIENT RESTING. O2 2L/NC,GOOD SATURATION.STILL ON BILATERAL SOFT WRIST RESTRAINT ON. IV AT RIGHT UPPER ARM PICC LINE INTACT. BED LOCKED AT LOWEST POSITION. NOT IN ANY DISTRESS.
[2022-04-27 18:41] VITALS: BP_SYST 126
[2022-04-27 20:00] VITALS: BP_SYST 142
--- NOTE | 2022-04-27 20:25 | NUR ---
Opening note- pt awake, alert but confused. No s/sx of Seizure. IVF via Rt upper arm PICC. Incontinent of urine. given jyoti car. skin intact.
[2022-04-27] MEDS: levETIRAcetam 1,500 MG in NS 85 ML IV SCH (20:43)
[2022-04-27] MEDS: ATORVASTATIN 20 MG TABLET PO SCH (20:44)
[2022-04-27 23:43] VITALS: BP_SYST 125
[2022-04-28] MEDS: LEVOTHYROXINE SODIUM 0.025 MG TABLET PO SCH (06:06)
[2022-04-28] MEDS: D5/0.45 NS 1,000 ML IV SCH ×3 (06:07→23:34)
--- NOTE | 2022-04-28 06:27 | NUR ---
Closing note- pt slept over night. Pt refused am medication and not cooperative with care. Refused Seroquile 12.5 mg.
[2022-04-28] MEDS: LORazepam 2 MG/ML VIAL IM PRN (06:34)
--- NOTE | 2022-04-28 06:37 | NUR ---
GIVEN ATIVAN 0.5 MG IVP FOR AGITATION.
--- NOTE | 2022-04-28 07:30 | NUR ---
MORNING ROUNDS: PATIENT SLEEPING DURING ROUNDS.EASILY AROUSED.ON BILATERAL SOFT WRIST RESTRAINT.RIGHT UPPER ARM PICC LINE INTACT,IV FLUIDS RUNNING WELL. BED LOCKED AT LOWEST POSITION. CONTINUE TO MONITOR.
[2022-04-28 08:09] VITALS: BP_SYST 125
[2022-04-28] MEDS: MULTIVITAMINS TAB 1 TABLET PO SCH (08:38)
[2022-04-28] MEDS: SULFAMETHOXAZOLE/TRIMETHOPR DS 1 TABLET PO SCH (08:39)
[2022-04-28] MEDS: CHOLECALCIFEROL (VITAMIN D3) 2,000 UNIT TABLET PO SCH (08:39)
[2022-04-28] MEDS: FAMOTIDINE 20 MG TABLET PO SCH (08:39)
[2022-04-28] MEDS: CARBIDOPA/LEVODOPA 25/100 MG TABLET PO SCH ×3 (08:40→21:00)
[2022-04-28] MEDS: HEPARIN SODIUM,PORCINE 5,000 UNITS/ML VIAL SUBCUT SCH ×2 (08:41→21:00)
[2022-04-28] MEDS: levETIRAcetam 1,500 MG in NS 85 ML IV SCH ×2 (08:46→21:59)
--- NOTE | 2022-04-28 09:00 | NUR ---
MED PASS: TOOK SOME OF CRUSHED MEDS WITH APPLE SAUCE. AFTER PATIENT REFUSED,AND CLENCHING BOTH HANDS.
[2022-04-28] MEDS: CEFEPIME 1 GM in D5W 50 ML IV SCH ×2 (11:41→23:33)
[2022-04-28 11:44] VITALS: BP_SYST 119
--- NOTE | 2022-04-28 14:20 | NUR ---
RN ROUNDS: RESTING. NO DISTRESS.
[2022-04-28] MEDS: PHENYTOIN SODIUM IV SCH (16:30)
[2022-04-28] MEDS: NS IV SCH (16:30)
--- NOTE | 2022-04-28 18:30 | NUR ---
EVENING ROUNDS: RESTING.RIGHT UPPER ARM PICC LINE INTACT ,IV FLUIDS RUNNING. BILATERAL SOFT WRIST RESTRAINT ON. ROOM AIR,WITH GOOD SATURATION. BED LOCKED AT LOWEST POSITION. CONTINUE TO MONITOR.
[2022-04-28 19:05] VITALS: BP_SYST 121
--- NOTE | 2022-04-28 19:30 | NUR ---
OPENING NOTE PT LYING BED. EYES CLOSED. CONFUSED AND UNCOOPERATIVE. RESTRAINTS WERE NOT ON HIS WRISTS. PUT THEM BACK ON. Q2HR ROUND MADE. VSS. PICC LINE IS SECURED AND PATENT. BED ALARM ON. SAFETY CHECKS IN PLACED. CONTINUE TO MONITOR.
[2022-04-28 20:00] VITALS: BP_SYST 113
[2022-04-28] MEDS: ATORVASTATIN 20 MG TABLET PO SCH (21:00)
[2022-04-28 23:00] VITALS: BP_SYST 113
--- NOTE | 2022-04-28 23:00 | NUR ---
ROUNDING NOTE PT LYING IN BED AND EYES CLOSED. NO S/S OF DISTRESS OR PAIN. BREATHING EVEN AND NONLABORED. RESTRAINTS ARE SECURED AND NO CIRCULATORY PROBLEMS DETECTED. BED ALARM ON AND SAFETY CHECKS IN PLACED. CALL LIGHT IN REACH. CONTINUE TO MONITOR.
[2022-04-29 01:20] VITALS: BP_SYST 104
[2022-04-29] MEDS: LEVOTHYROXINE SODIUM 0.025 MG TABLET PO SCH (06:42)
--- NOTE | 2022-04-29 06:51 | NUR ---
CLOSING NOTE PT LYING IN BED, EYES CLOSED. BREATHING EVEN AND NONLABORED WITH RA. RESTRAINTS ARE SECURED AND SKIN INTACT. SYNTHROID GIVEN WITH CRUSHED AND MIXED WITH APPLESAUCE. NO S/S ACUTE DISTRESS OR PAIN. SAFETY CHECKS IN PLACE. CALL LIGHT IN REACH.
[2022-04-29 08:00] VITALS: BP_SYST 119
--- NOTE | 2022-04-29 08:17 | NUR ---
OPENING NOTES: PT IN BED WITH EYES CLOSED. NO S/S OF DISTRESS OR PAIN REPORTED. BREATHING IS EVEN AND UNLABORED ON RA. IV FLUIDS RUNNING. ALL NEEDS MET AT THIS TIME, SAFETY CHECKS MADE AND CALL LIGHT WITHIN REACH.
[2022-04-29] MEDS: FAMOTIDINE 20 MG TABLET PO SCH (09:00)
[2022-04-29] MEDS: CARBIDOPA/LEVODOPA 25/100 MG TABLET PO SCH ×3 (09:00→20:59)
[2022-04-29] MEDS: CHOLECALCIFEROL (VITAMIN D3) 2,000 UNIT TABLET PO SCH (09:00)
[2022-04-29] MEDS: MULTIVITAMINS TAB 1 TABLET PO SCH (09:00)
[2022-04-29 10:04] LABS: ALANINE AMINOTRANSFERASE 17 U/L (12-78); ALBUMIN 3.2 g/dL (3.4-4.8); ANION GAP 13 (5-15); ASPARTATE AMINOTRANSFERASE 14 U/L (10-37); CALCIUM 9.1 mg/dL (8.4-11.0); CHLORIDE 105 mmol/L (98-107); CREATININE 1.13 mg/dL (0.55-1.30); GLUCOSE 110 mg/dL (70-99); TOTAL BILIRUBIN 0.2 mg/dL (0.0-1.0); UREA NITROGEN, BLOOD 13 mg/dL (8-21)
--- NOTE | 2022-04-29 10:25 | NUR ---
ROUNDS: PT IS REFUSING ORAL MEDICATIONS. EDUCATED HIM ON IMPORTANCE OF TAKING MEDICATIONS AND HE SAID "HE'S BETTER OFF WITHOUT THEM". WAITING FOR [facility] LAB TO COME THROUGH BEFORE ADMINISTERING HIS HEPARIN SUBQ.
[2022-04-29] MEDS: levETIRAcetam 1,500 MG in NS 85 ML IV SCH ×2 (10:38→21:28)
[2022-04-29 12:00] VITALS: BP_SYST 110
--- NOTE | 2022-04-29 12:00 | NUR ---
ROUNDS: PT IN BED WITH EYES CLOSED. NO S/S OF DISTRESS OR PAIN REPORTED. BREATHING IS EVEN AND UNLABORED ON RA. ALL NEEDS MET AT THIS TIME ,SAFETY AND RESTRAINT CHECKS MADE, CALL LIGHT WITHIN REACH.
[2022-04-29] MEDS: CEFEPIME 1 GM in D5W 50 ML IV SCH (12:31)
[2022-04-29 12:44] LABS: BASOPHILS # (AUTO) 0.1 K/uL (0.0-0.2); BASOPHILS % (AUTO) 1.8 % (0.0-2.0); EOSINOPHILS # (AUTO) 0.2 K/uL (0.0-0.4); EOSINOPHILS % (AUTO) 4.9 % (0.0-4.0); HEMATOCRIT 37.5 % (36-54); HEMOGLOBIN 12.4 g/dL (14.0-18.0); LYMPHOCYTES # (AUTO) 1.5 K/uL (1.0-5.5); MEAN CORPUSCULAR HEMOGLOBIN 30 pg (27-31); MEAN CORPUSCULAR HGB CONC 33 % (32-36); MEAN CORPUSCULAR VOLUME 91 fL (79.0-98.0); MONOCYTES # (AUTO) 0.5 K/uL (0.0-1.0); MONOCYTES % (AUTO) 13.8 % (1.7-9.3); NEUTROPHILS # (AUTO) 1.6 K/uL (1.8-7.7); NEUTROPHILS % (AUTO) 41.5 % (40.0-70.0); PLATELET COUNT (AUTO) 218 K/uL (130-430); RED CELL DISTRIBUTION WIDTH 15.6 % (9.0-15.0); WHITE BLOOD COUNT (AUTO) 3.9 K/uL (4.8-10.8)
[2022-04-29] MEDS: D5/0.45 NS 1,000 ML IV SCH (13:30)
[2022-04-29] MEDS: HEPARIN SODIUM,PORCINE 5,000 UNITS/ML VIAL SUBCUT SCH ×2 (13:36→20:58)
[2022-04-29] MEDS: NS IV SCH ×2 (16:00→18:50)
[2022-04-29] MEDS: PHENYTOIN SODIUM IV SCH ×2 (16:00→18:50)
[2022-04-29 16:30] VITALS: BP_SYST 115
--- NOTE | 2022-04-29 17:00 | NUR ---
PHARMACY: DILANTIN AT 1600 NOT AVAILABLE.CALLED PHARMACY AT 1630. PHARMACY SAID MACHINE THAT MAKES IT IS BEING CLEANED.
--- NOTE | 2022-04-29 18:09 | NUR ---
: CALLED DR LUKE TO RENEW RESTRAINT ORDERS.
--- NOTE | 2022-04-29 19:30 | NUR ---
OPENING NOTE PT LYING BED. EYES CLOSED. RESPONDED TO CALL HIS NAME. BREATHING EVEN AND NONLABORED ON RA. NO S/S OF ACUTE DISTRESS OR PAIN. RESTRAINTS ON BOTH WRISTS AND SECURE. CALL LIGHT IN REACH. SAFETY CHECKS IN PLACE. CONTINUE TO MONITOR.
--- NOTE | 2022-04-29 19:30 | NUR ---
CLOSING NOTES: PT IN BED WITH EYES CLOSED. NO S/S OF DISTRESS OR PAIN REPORTED. BREATHING IS EVEN AND UNLABORED ON RA. ALL NEEDS MET AT THIS TIME, SAFETY CHECKS MADE AND CALL LIGHT WITHIN REACH. WILL ENDORSE TO DATABASE DEVELOPMENT PROJECT MANAGER NURSE.
[2022-04-29 20:00] VITALS: BP_SYST 121
[2022-04-29] MEDS: ATORVASTATIN 20 MG TABLET PO SCH (20:59)
[2022-04-29] MEDS: MEGESTROL ACETATE 400 MG/10 ML UDC PO SCH (20:59)
[2022-04-30] VITALS (7 sets, daily range): BP systolic 112–138
[2022-04-30] MEDS: CEFEPIME 1 GM in D5W 50 ML IV SCH (00:13)
[2022-04-30] MEDS: D5/0.45 NS 1,000 ML IV SCH ×2 (02:00→14:00)
--- NOTE | 2022-04-30 04:00 | NUR ---
ROUNDING NOTE. PT WET HIS BED. CHANGED LINEN AND PADS. PROVIDED PERINEAL CARE. PT AGITATED AND UNCOOPERATIVE. RESTRAINTS IN PLACE. WRISTS SKIN INTACT. BED ALARM ON. SAFETY CHECKS IN PLACE. CONTINUE TO MONITOR
[2022-04-30] MEDS: LEVOTHYROXINE SODIUM 0.025 MG TABLET PO SCH (06:48)
--- NOTE | 2022-04-30 06:57 | NUR ---
CLOSING NOTE PT LYING BED. EYES CLOSED. RESPONDED TO CALL HIS NAME. BREATHING EVEN AND NONLABORED ON RA. NO S/S OF ACUTE DISTRESS OR PAIN. RESTRAINTS ON BOTH WRISTS AND SECURE. CALL LIGHT IN REACH. SAFETY CHECKS IN PLACE. CONTINUE TO MONITOR. ENDORSED TO DAY SHIFT NURSE
--- NOTE | 2022-04-30 07:54 | NUR ---
OPENING NOTES: PT LYING BED WITH EYES CLOSED. RESPONDED TO HIS NAME. BREATHING EVEN AND NONLABORED ON RA. NO S/S OF ACUTE DISTRESS OR PAIN. RESTRAINTS ON BOTH WRISTS ARE SECURE. CALL LIGHT IN REACH. SAFETY CHECKS IN PLACE.
[2022-04-30] MEDS: MEGESTROL ACETATE 400 MG/10 ML UDC PO SCH ×2 (08:22→20:32)
[2022-04-30] MEDS: CARBIDOPA/LEVODOPA 25/100 MG TABLET PO SCH ×3 (08:22→20:32)
[2022-04-30] MEDS: MULTIVITAMINS TAB 1 TABLET PO SCH (08:23)
[2022-04-30] MEDS: CHOLECALCIFEROL (VITAMIN D3) 2,000 UNIT TABLET PO SCH (08:23)
[2022-04-30] MEDS: FAMOTIDINE 20 MG TABLET PO SCH (08:23)
[2022-04-30] MEDS: HEPARIN SODIUM,PORCINE 5,000 UNITS/ML VIAL SUBCUT SCH ×2 (08:29→20:36)
--- NOTE | 2022-04-30 08:34 | NUR ---
ROUNDS: PT IS OFF RESTRAINTS WHILE HE FEEDS HIMSELF BREAKFAST AND HE TOOK ALL OF HIS MORNING PO MEDICATIONS. WILL REAPPLY RESTRAINTS ONCE HE FINISHES EATING.
[2022-04-30] MEDS: levETIRAcetam 1,500 MG in NS 85 ML IV SCH ×2 (08:58→20:33)
--- NOTE | 2022-04-30 10:14 | NUR ---
MD: ATTEMPTED TO CALL DR LUKE'S OFFICE IN REGARDS TO PT STATUS AND ASK HIM ABOUT NEXT STEPS FOR PT. HIS VOICEMAIL WAS FULL. WILL ATTEMPT TO CALL LATER.
--- NOTE | 2022-04-30 12:23 | NUR ---
MD: CALLED DR LUKE FOR TO DISCUSS CARE PLAN FOR PT. WAITING FOR CALL BACK.
[2022-04-30] MEDS ORDERED: QUEtiapine FUMARATE 25 MG TABLET PO ONE (13:30)
--- NOTE | 2022-04-30 16:07 | NUR ---
: SPOKE WITH DR LUKE. HE RENEWED THE RESTRAINTS FOR 04/30/22. HE SAID NOT TO THE RENEW THE RESTRAINTS TOMORROW AND THAT THE PT CAN BE TRANSFERRED BACK TO [facility]. WILL UPDATE THE MAGNETIC PROSPECTING SUPERVISOR NURSE.
--- NOTE | 2022-04-30 18:09 | NUR ---
CLOSING NOTES: PT IN BED FEEDING HIMSELF DINNER. NO S/S OF DISTRESS OR PAIN REPORTED. IV RUNNING FLUIDS. BREATHING IS EVEN AND UNLABORED ON RA. Q2 HOURLY RESTRAINT ROUNDS COMPLETED. ALL NEEDS MET AT THIS TIME, SAFETY CHECKS MADE AND CALL LIGHT WITHIN REACH. WILL ENDORSE TO CRIMINAL ANALYST.
[2022-04-30] MEDS: PHENYTOIN SODIUM IV SCH (18:11)
[2022-04-30] MEDS: NS IV SCH (18:11)
[2022-04-30] MEDS: ATORVASTATIN 20 MG TABLET PO SCH (20:32)
[2022-04-30] MEDS: QUEtiapine FUMARATE 25 MG TABLET PO SCH (20:32)
[2022-04-30] MEDS ORDERED: QUEtiapine FUMARATE 25 MG TABLET PO SCH ×2 (21:00)
[2022-05-01] VITALS: BP_SYST 125
[2022-05-01] MEDS: D5/0.45 NS 1,000 ML IV SCH ×2 (03:29→15:30)
--- NOTE | 2022-05-01 03:45 | NUR ---
PT ABLE TO REMOVE SHAYLA RESTRAINTS. PT ATTEMPTED TO CLIMB OUT OF BED. PT ASSISTED BACK INTO BED. RESTRAINTS PLACED BACK ON PT
--- NOTE | 2022-05-01 04:30 | NUR ---
PT AWAKE IN BED. PT VERY AGITATED. PT NOT FOLLOWING COMMANDS AND WAS ABLE TO REMOVE SHAYLA WRIST RESTRAINTS. PT PULLED OUT PICC LINE. PICC TUBING APPEARED TO BE INTACT. NO SIGNS OF BLEEDING. ATTEMPTED TO CALM PT DOWN AND PLACE RESTRAINTS BACK ON. IT TOOK 2 NURSES TO GET PT BACK IN RESTRAINTS. NEW IV STARTED IN RAC 24G. BED ALARM ON.
[2022-05-01] MEDS: LORazepam 2 MG/ML VIAL IM PRN (04:41)
[2022-05-01] MEDS: LEVOTHYROXINE SODIUM 0.025 MG TABLET PO SCH (06:57)
[2022-05-01 08:00] VITALS: BP_SYST 134
--- NOTE | 2022-05-01 08:00 | NUR ---
Opening Notes Patient is AOx2. Confused. Bed rest. No ss of distress noted. Breathing is even and nonlabored, on room air. Patient denies pain. No facial grimace noted. Patient has IV to JUAN, 24G. Vital signs obtained, as documented. Patient has been cleaned and repositioned. During change, patient bilateral soft wrist restraints were off, patient was aggressive, fighting, and pulling. Bilateral soft wrist restraints back on. No ss of edema and/ or redness to wrist. Patient is in a comfortable position. Bed is padded for seizure precautions. Bed is locked, alarm on, and at lowest position. Call light within reach.
[2022-05-01] MEDS: CARBIDOPA/LEVODOPA 25/100 MG TABLET PO SCH ×3 (09:00→16:03)
[2022-05-01] MEDS: FAMOTIDINE 20 MG TABLET PO SCH ×2 (09:00→09:36)
[2022-05-01] MEDS: MULTIVITAMINS TAB 1 TABLET PO SCH ×2 (09:00→09:35)
[2022-05-01] MEDS: QUEtiapine FUMARATE 25 MG TABLET PO SCH ×2 (09:00→09:35)
[2022-05-01] MEDS: MEGESTROL ACETATE 400 MG/10 ML UDC PO SCH ×2 (09:00→09:34)
[2022-05-01] MEDS: CHOLECALCIFEROL (VITAMIN D3) 2,000 UNIT TABLET PO SCH ×2 (09:00→09:37)
--- NOTE | 2022-05-01 09:00 | NUR ---
Notes IV Keppra not administered. IV infiltrated. NO IV access. Paged Dr. Nielson.
[2022-05-01] MEDS: HEPARIN SODIUM,PORCINE 5,000 UNITS/ML VIAL SUBCUT SCH (09:34)
[2022-05-01] MEDS: levETIRAcetam 1,500 MG in NS 85 ML IV SCH (09:36)
[2022-05-01 11:32] VITALS: BP_SYST 122
--- NOTE | 2022-05-01 11:40 | NUR ---
Paged and spoke to Dr. Nielson. made aware that patient pulled out PICC line last night and has no IV access. Per , Cornelius and Ariana changed to PO.
[2022-05-01] MEDS: levETIRAcetam 500 MG TABLET PO ONE ×2 (12:00→12:51)
--- NOTE | 2022-05-01 12:14 | NUR ---
DC planning; packet faxed to [facility] f# [phone].
[2022-05-01] MEDS: PHENYTOIN 100 MG CAPSULE PO ONE ×2 (12:51→16:03)
--- NOTE | 2022-05-01 12:55 | NUR ---
Notes Patient is resting, eyes closed. Patient has been repositioned. Patient appears to be really sleepy. No ss of distress noted. No facial grimace noted. Patient is calm. Discontinued bilateral soft wrist restraints at this time. Bed is padded, locked, alarm on, and at lowest position. call light iwhtin reach.
[2022-05-01 15:35] VITALS: BP_SYST 126
--- NOTE | 2022-05-01 15:59 | NUR ---
Patient to be discharged to [facility]. room [address]A. Station [address]. [phone]. Transportation arranged with [facility] . ETA corn picker at 19:00. RN to fax rapid covid test results to [facility]. Fax sheet filled out and ready to fax included in DC packet placed on unit. Will notify patient RN.
[2022-05-01 16:00] VITALS: BP_SYST 101
--- NOTE | 2022-05-01 16:00 | NUR ---
NOTES PATIENT IS MORE AWAKE. RESTING. NO SS OF DISTRESS NOTED. BREATHING IS EVEN AND NONLABORED, ON ROOM AIR. NO FACIAL GRIMACE NOTED. PATIENT DENIES PAIN. BED IS LOCKED, ALARM ON, AND AT LOWEST POSITION. CALL LIGHT WITHIN REACH
[2022-05-01 16:26] VITALS: BP_SYST 126
--- NOTE | 2022-05-01 18:38 | NUR ---
CLOSING NOTES PATIENT IS EATING DINNER, BY HIMSELF. PATIENT IS CALM. NO SS OF DISTRESS NOTED. BREATHING IS EVEN AND NONLABORED, ON ROOM AIR. NO SOB NOTED. PATIENT DENIES SEVERE PAIN. NO IV ACCES. PATIENT TO BE DISCHARGED TO [facility], [facility] TIME SET AT 1900. REPORT GIVEN AT 1735, SPOKE WITH LEAH BRUNSON. PATIENT IS STABLE AT THIS TIME. ALL NEEDS MET. BED IS LOCKED, ALARM ON, AND AT LOWEST POSITION. BED IS PADDED. CALL LIGHT WITHIN REACH.
--- NOTE | 2022-05-01 19:24 | NUR ---
D/C Patient Patient given medication reconciliation form and D/C instructions. Exit Care provided. Patient verbalized understanding. MD discussed with patient the results and treatment provided. Patient transported via ambulance to [facility]. Patient in stable condition, ID band removed. IV catheter removed, intact and dressing applied, no active bleeding. Rx of given. Patient educated on pain management. All belongings sent with patient. Report was already given.
[2022-05-01] MEDS ORDERED: levETIRAcetam 500 MG TABLET PO SCH (21:00)
[2022-05-02] MEDS ORDERED: PHENYTOIN 100 MG CAPSULE PO SCH (09:00)
== END 2022-05-01 21:23 | DRG 872 ==
LOC: SED 03:51 → STU 07:29
PROVIDERS: ADMIT Internal Medicine; ATTEND Internal Medicine
DX: A41.9 Sepsis, unspecified organism (principal); N39.0 Urinary tract infection, site not specified; R56.9 Unspecified convulsions; F02.80 Dementia in other diseases classified elsewhere, unspecified severity, without behavioral disturbance, psychotic disturbance, mood disturbance, and anxiety; G20 Parkinson's disease; J44.9 Chronic obstructive pulmonary disease, unspecified; E03.9 Hypothyroidism, unspecified; M19.90 Unspecified osteoarthritis, unspecified site; N28.9 Disorder of kidney and ureter, unspecified; F29 Unspecified psychosis not due to a substance or known physiological condition; R53.81 Other malaise; B96.4 Proteus (mirabilis) (morganii) as the cause of diseases classified elsewhere; D64.9 Anemia, unspecified; I10 Essential (primary) hypertension; Z20.822 Contact with and (suspected) exposure to COVID-19; Z88.8 Allergy status to other drugs, medicaments and biological substances; E86.0 Dehydration
CPT/HCPCS: 36415; 70450-TC; 71045; 76376; 80053; 80184; 80185; 81000; 82140; 83605; 83880; 84443; 84484; 85025; 85610-TC; 85730-TC; 87040; 87081; 87086; 93005; 96365; 99291; G0378; J0692; J0696; J1165; J1644; J1953; J2060; J3480; J7050; J7060